=== PATIENT | female | born 1940 | race Caucasian/White ===

== ENCOUNTER → 2023-08-18 09:54 | Outpatient (REF) | payer MEDICARE, SELFPAY ==
[2023-08-18 11:16] LABS: INR 3.28; PT 33.9 Sec (11.4-14.6)
== END ==
LOC: REG 09:54
PROVIDERS: ATTENDING PHYSICIAN Family Medicine
DX: I48.0 Paroxysmal atrial fibrillation (principal); D59.5 Paroxysmal nocturnal hemoglobinuria [Marchiafava-Micheli]
CPT/HCPCS: 36415; 85610

== ENCOUNTER → 2023-09-01 11:18 | Outpatient (REF) | payer MEDICARE, SELFPAY ==
[2023-09-01 13:08] LABS: INR 4.58; PT 44.2 Sec (11.4-14.6)
== END ==
LOC: REG 11:18
PROVIDERS: ATTENDING PHYSICIAN Family Medicine
DX: I48.0 Paroxysmal atrial fibrillation (principal); D59.5 Paroxysmal nocturnal hemoglobinuria [Marchiafava-Micheli]
CPT/HCPCS: 36415; 85610

== ENCOUNTER → 2023-09-06 09:06 | Outpatient (REF) | payer MEDICARE, SELFPAY ==
[2023-09-06 10:24] LABS: INR 2.41; PT 26.1 Sec (11.4-14.6)
== END ==
LOC: REG 09:06
PROVIDERS: ATTENDING PHYSICIAN Family Medicine; REFERRING PHYSICIAN Internal Medicine Cardiovascular Disease
DX: D59.5 Paroxysmal nocturnal hemoglobinuria [Marchiafava-Micheli] (principal); I48.0 Paroxysmal atrial fibrillation
CPT/HCPCS: 36415; 85610

== ENCOUNTER → 2023-09-13 11:52 | Outpatient (REF) | payer MEDICARE, SELFPAY ==
[2023-09-13 13:08] LABS: INR 2.82; PT 29.6 Sec (11.4-14.6)
[2023-09-13 13:38] LABS: Blood Urea Nitrogen 26 mg/dl (7-17); Calcium 9.3 mg/dl (8.4-10.2); Carbon Dioxide 27 mmol/L (22-30); Chloride 102 mmol/L (98-107); Glucose 97 mg/dl (70-99); Potassium 4.4 mmol/L (3.5-5.1); Sodium 138 mmol/L (135-145); eGFR > 60.00
== END ==
LOC: REG 11:52
PROVIDERS: ATTENDING PHYSICIAN Family Medicine; FAMILY PHYSICIAN Physician Assistant
DX: I50.31 Acute diastolic (congestive) heart failure (principal); I48.92 Unspecified atrial flutter; I48.0 Paroxysmal atrial fibrillation; I49.3 Ventricular premature depolarization; D59.5 Paroxysmal nocturnal hemoglobinuria [Marchiafava-Micheli]
CPT/HCPCS: 36415; 80048; 85610

== ENCOUNTER → 2023-09-30 10:17 | Outpatient (REF) | payer MEDICARE, SELFPAY ==
[2023-09-30 11:42] LABS: INR 4.41; PT 42.8 Sec (11.4-14.6)
== END ==
LOC: REG 10:17
PROVIDERS: ATTENDING PHYSICIAN Family Medicine
DX: I48.0 Paroxysmal atrial fibrillation (principal); D59.5 Paroxysmal nocturnal hemoglobinuria [Marchiafava-Micheli]
CPT/HCPCS: 36415; 85610

== ENCOUNTER → 2023-10-04 09:59 | Outpatient (REF) | payer MEDICARE, SELFPAY ==
[2023-10-04 12:46] LABS: INR 2.33; PT 25.4 Sec (11.4-14.6)
== END ==
LOC: REG 09:59
PROVIDERS: ATTENDING PHYSICIAN Family Medicine
DX: I48.0 Paroxysmal atrial fibrillation (principal); D59.5 Paroxysmal nocturnal hemoglobinuria [Marchiafava-Micheli]
CPT/HCPCS: 36415; 85610

== ENCOUNTER → 2023-10-12 10:17 | Outpatient (REF) | payer MEDICARE, SELFPAY ==
[2023-10-12 12:38] LABS: INR 4.05; PT 39.4 Sec (11.4-14.6)
== END ==
LOC: REG 10:17
PROVIDERS: ATTENDING PHYSICIAN Family Medicine
DX: I48.0 Paroxysmal atrial fibrillation (principal); D59.5 Paroxysmal nocturnal hemoglobinuria [Marchiafava-Micheli]
CPT/HCPCS: 36415; 85610

== ENCOUNTER → 2023-10-19 08:51 | Outpatient (REF) | payer MEDICARE, SELFPAY ==
[2023-10-19 12:57] LABS: INR 1.95
== END ==
LOC: REG 08:51
PROVIDERS: ATTENDING PHYSICIAN Family Medicine
DX: I48.0 Paroxysmal atrial fibrillation (principal); D59.5 Paroxysmal nocturnal hemoglobinuria [Marchiafava-Micheli]
CPT/HCPCS: 36415; 85610

== ENCOUNTER → 2023-10-21 09:46 | Outpatient (REF) | payer MEDICARE, SELFPAY ==
[2023-10-21 12:00] LABS: INR 1.89; PT 21.9 Sec (11.4-14.6)
== END ==
LOC: REG 09:46
PROVIDERS: ATTENDING PHYSICIAN Family Medicine
DX: I48.0 Paroxysmal atrial fibrillation (principal); D59.5 Paroxysmal nocturnal hemoglobinuria [Marchiafava-Micheli]
CPT/HCPCS: 36415; 85610

== ENCOUNTER → 2023-11-05 09:42 | Outpatient (REF) | payer MEDICARE, SELFPAY ==
[2023-11-05 13:19] LABS: INR 6.63; PT 58.3 Sec (11.4-14.6)
== END ==
LOC: REG 09:42
PROVIDERS: ATTENDING PHYSICIAN Family Medicine
DX: D59.5 Paroxysmal nocturnal hemoglobinuria [Marchiafava-Micheli] (principal); I48.0 Paroxysmal atrial fibrillation; Z79.01 Long term (current) use of anticoagulants
CPT/HCPCS: 36415; 85610

== ENCOUNTER → 2023-11-10 09:45 | Outpatient (REF) | payer MEDICARE, SELFPAY ==
[2023-11-10 12:53] LABS: INR 1.42; PT 17.4 Sec (11.4-14.6)
== END ==
LOC: REG 09:45
PROVIDERS: ATTENDING PHYSICIAN Family Medicine
DX: D59.5 Paroxysmal nocturnal hemoglobinuria [Marchiafava-Micheli] (principal); I48.0 Paroxysmal atrial fibrillation; Z79.01 Long term (current) use of anticoagulants
CPT/HCPCS: 36415; 85610

== ENCOUNTER → 2023-11-17 11:54 | Outpatient (REF) | payer MEDICARE, SELFPAY ==
[2023-11-17 13:56] LABS: INR 1.94; PT 22.3 Sec (11.4-14.6)
== END ==
LOC: REG 11:54
PROVIDERS: ATTENDING PHYSICIAN Family Medicine
DX: I48.0 Paroxysmal atrial fibrillation (principal); D59.5 Paroxysmal nocturnal hemoglobinuria [Marchiafava-Micheli]
CPT/HCPCS: 36415; 85610

== ENCOUNTER → 2023-11-25 11:37 | Outpatient (REF) | payer MEDICARE, SELFPAY ==
[2023-11-25 12:42] LABS: INR 2.34; PT 25.9 Sec (11.4-14.6)
== END ==
LOC: REG 11:37
PROVIDERS: ATTENDING PHYSICIAN Family Medicine
DX: D59.5 Paroxysmal nocturnal hemoglobinuria [Marchiafava-Micheli] (principal); I48.0 Paroxysmal atrial fibrillation; Z79.01 Long term (current) use of anticoagulants
CPT/HCPCS: 36415; 85610

== ENCOUNTER → 2023-12-06 10:11 | Outpatient (REF) | payer MEDICARE, SELFPAY ==
[2023-12-06 12:24] LABS: INR 3.36
== END ==
LOC: REG 10:11
PROVIDERS: ATTENDING PHYSICIAN Family Medicine
DX: D59.5 Paroxysmal nocturnal hemoglobinuria [Marchiafava-Micheli] (principal); I48.0 Paroxysmal atrial fibrillation; Z79.01 Long term (current) use of anticoagulants
CPT/HCPCS: 36415; 85610

== ENCOUNTER → 2023-12-20 12:21 | Outpatient (REF) | payer MEDICARE, SELFPAY ==
[2023-12-20 13:09] LABS: PT 24.3 Sec (11.4-14.6)
== END ==
LOC: REG 12:21
PROVIDERS: ATTENDING PHYSICIAN Family Medicine
DX: I48.0 Paroxysmal atrial fibrillation (principal); D59.5 Paroxysmal nocturnal hemoglobinuria [Marchiafava-Micheli]
CPT/HCPCS: 36415; 85610

== ENCOUNTER → 2024-01-06 11:46 | Outpatient (REF) | payer MEDICARE, SELFPAY ==
[2024-01-06 17:29] LABS: NT-proBNP 494 pg/ml
[2024-01-06 17:31] LABS: Blood Urea Nitrogen 26 mg/dl (7-17); Calcium 9.6 mg/dl (8.4-10.2); Carbon Dioxide 27 mmol/L (22-30); Chloride 104 mmol/L (98-107); Glucose 101 mg/dl (70-99); Sodium 140 mmol/L (135-145); eGFR > 60.00
[2024-01-06 17:36] LABS: INR 1.82; PT 21.2 Sec (11.4-14.6)
== END ==
LOC: REG 11:46
PROVIDERS: ATTENDING PHYSICIAN Family Medicine; REFERRING PHYSICIAN Internal Medicine Cardiovascular Disease
DX: I48.0 Paroxysmal atrial fibrillation (principal); D59.5 Paroxysmal nocturnal hemoglobinuria [Marchiafava-Micheli]; I50.31 Acute diastolic (congestive) heart failure
CPT/HCPCS: 36415; 80048; 83880; 85610

== ENCOUNTER → 2024-02-14 09:20 | Outpatient (REF) | payer MEDICARE, SELFPAY ==
[2024-02-14 12:20] LABS: INR 1.98; PT 22.3 Sec (11.4-14.6)
== END ==
LOC: REG 09:20
PROVIDERS: ATTENDING PHYSICIAN Family Medicine
DX: I48.0 Paroxysmal atrial fibrillation (principal); D59.5 Paroxysmal nocturnal hemoglobinuria [Marchiafava-Micheli]
CPT/HCPCS: 36415; 85610

== ENCOUNTER → 2024-03-06 10:42 | Outpatient (REF) | payer MEDICARE, SELFPAY ==
[2024-03-06 12:22] LABS: INR 2.49; PT 26.8 Sec (11.4-14.6)
== END ==
LOC: REG 10:42
PROVIDERS: ATTENDING PHYSICIAN Family Medicine
DX: I48.0 Paroxysmal atrial fibrillation (principal)
CPT/HCPCS: 36415; 85610

== ENCOUNTER → 2024-04-17 13:43 | Outpatient (REF) | payer MEDICARE, SELFPAY ==
[2024-04-17 15:28] LABS: INR 1.63; PT 19.2 Sec (11.4-14.6)
[2024-04-17 16:02] LABS: ALT (SGPT) 21 U/L (0-35); AST (SGOT) 23 U/L (14-36); Albumin 4.2 g/dl (3.5-5.0); Alkaline Phosphatase 87 U/L (38-126); Blood Urea Nitrogen 21 mg/dl (7-17); Calcium 9.2 mg/dl (8.4-10.2); Carbon Dioxide 25 mmol/L (22-30); Chloride 104 mmol/L (98-107); Glucose 86 mg/dl (70-99); HDL Cholesterol 91 mg/dl; LDL Cholesterol, Calculated 126 mg/dl; Potassium 4.4 mmol/L (3.5-5.1); Sodium 143 mmol/L (135-145); Total Bilirubin 1.1 mg/dl (0.2-1.3); Total Cholesterol 241 mg/dl (50-199); Total Protein 6.5 g/dl (6.3-8.2); Triglyceride 123 mg/dl (10-149); Very Low Density Lipoprotein 24 mg/dl (0-30); eGFR > 60.00
== END ==
LOC: REG 13:43
PROVIDERS: ATTENDING PHYSICIAN Family Medicine
DX: E78.2 Mixed hyperlipidemia (principal); I48.0 Paroxysmal atrial fibrillation; I10 Essential (primary) hypertension
CPT/HCPCS: 36415; 80053; 80061; 85610

== ENCOUNTER → 2024-05-10 14:37 | Outpatient (REF) | payer MEDICARE, SELFPAY ==
[2024-05-10 15:58] LABS: INR 1.41; PT 17.4 Sec (11.4-14.6)
== END ==
LOC: REG 14:37
PROVIDERS: ATTENDING PHYSICIAN Family Medicine
DX: I48.0 Paroxysmal atrial fibrillation (principal)
CPT/HCPCS: 36415; 85610

== ENCOUNTER → 2024-06-05 12:26 | Outpatient (REF) | payer MEDICARE, SELFPAY ==
[2024-06-05 13:16] LABS: INR 1.66; PT 19.9 Sec (11.4-14.6)
== END ==
LOC: RCS 12:26
PROVIDERS: ATTENDING PHYSICIAN Internal Medicine Cardiovascular Disease; FAMILY PHYSICIAN Family Medicine
DX: I50.31 Acute diastolic (congestive) heart failure (principal)
CPT/HCPCS: 36415; 85610; 93306

== ENCOUNTER → 2024-06-23 10:01 | Outpatient (REF) | payer MEDICARE, SELFPAY ==
[2024-06-23 13:30] LABS: INR 1.85; PT 21.5 Sec (11.4-14.6)
== END ==
LOC: REG 10:01
PROVIDERS: ATTENDING PHYSICIAN Family Medicine
DX: I48.0 Paroxysmal atrial fibrillation (principal)
CPT/HCPCS: 36415; 85610

== ENCOUNTER → 2024-07-17 13:05 | Outpatient (REF) | payer MEDICARE, SELFPAY ==
[2024-07-17 14:10] LABS: INR 1.96; PT 22.8 Sec (11.4-14.6)
== END ==
LOC: REG 13:05
PROVIDERS: ATTENDING PHYSICIAN Family Medicine
DX: I48.0 Paroxysmal atrial fibrillation (principal)
CPT/HCPCS: 36415; 85610

== ENCOUNTER → 2024-07-27 10:22 | Outpatient (REF) | payer MEDICARE, SELFPAY ==
[2024-07-27 15:01] LABS: INR 3.33; PT 34.1 Sec (11.4-14.6)
== END ==
LOC: REG 10:22
PROVIDERS: ATTENDING PHYSICIAN Family Medicine
DX: I48.0 Paroxysmal atrial fibrillation (principal)
CPT/HCPCS: 36415; 85610

== ENCOUNTER → 2024-08-02 13:56 | Outpatient (REF) | payer MEDICARE, SELFPAY | LOC: RAD 13:56 | PROVIDERS: ATTENDING PHYSICIAN Family Medicine; OTHER PHYSICIAN Internal Medicine Medical Oncology; REFERRING PHYSICIAN Internal Medicine Cardiovascular Disease | DX: R10.13 Epigastric pain (principal) | CPT/HCPCS: 74176 ==

== ENCOUNTER → 2024-08-12 10:57 | Outpatient (REF) | payer MEDICARE, SELFPAY ==
[2024-08-12 12:04] LABS: INR 2.74; PT 28.9 Sec (11.4-14.6)
== END ==
LOC: REG 10:57
PROVIDERS: ATTENDING PHYSICIAN Family Medicine
DX: I48.0 Paroxysmal atrial fibrillation (principal)
CPT/HCPCS: 36415; 85610

== ENCOUNTER → 2024-08-31 12:03 | Outpatient (REF) | payer MEDICARE, SELFPAY ==
[2024-08-31 13:08] LABS: INR 2.15; PT 24.4 Sec (11.4-14.6)
== END ==
LOC: REG 12:03
PROVIDERS: ATTENDING PHYSICIAN Family Medicine; REFERRING PHYSICIAN Internal Medicine Cardiovascular Disease
DX: D68.69 Other thrombophilia (principal); I48.0 Paroxysmal atrial fibrillation
CPT/HCPCS: 36415; 85610

== ENCOUNTER → 2024-09-22 12:05 | Outpatient (REF) | payer MEDICARE, SELFPAY ==
[2024-09-22 12:55] LABS: INR 1.93; PT 22.2 Sec (11.4-14.6)
[2024-09-22 13:01] LABS: ALT (SGPT) 16 U/L (0-35); AST (SGOT) 28 U/L (14-36); Albumin 4.9 g/dl (3.5-5.0); Alkaline Phosphatase 94 U/L (38-126); Blood Urea Nitrogen 34 mg/dl (7-17); Calcium 9.8 mg/dl (8.4-10.2); Carbon Dioxide 31 mmol/L (22-30); Chloride 99 mmol/L (98-107); Glucose 98 mg/dl (70-99); HDL Cholesterol 54 mg/dl; LDL Cholesterol, Calculated 173 mg/dl; Potassium 4.8 mmol/L (3.5-5.1); Sodium 139 mmol/L (135-145); Total Bilirubin 1.4 mg/dl (0.2-1.3); Total Cholesterol 269 mg/dl (50-199); Total Protein 7.6 g/dl (6.3-8.2); Triglyceride 211 mg/dl (10-149); Very Low Density Lipoprotein 42 mg/dl (0-30); eGFR 54.87
== END ==
LOC: REG 12:05
PROVIDERS: ATTENDING PHYSICIAN Family Medicine
DX: I50.32 Chronic diastolic (congestive) heart failure (principal); E78.2 Mixed hyperlipidemia; D68.69 Other thrombophilia
CPT/HCPCS: 36415; 80053; 80061; 85610

== ENCOUNTER → 2024-10-11 11:41 | Outpatient (REF) | payer MEDICARE, SELFPAY ==
[2024-10-11 12:42] LABS: % Basophils 0.4 % (0-2); % Eosinophils 2.7 % (0-6); % Immature Granulocytes 0.6 % (0-0.5); % Lymphocytes 18.6 % (20.5-51.1); % Monocytes 8.2 % (1.7-9.3); % Neutrophils 69.5 % (42.2-75.2); Absolute Eosinophils 0.3 10^3/uL (0-0.7); Absolute Immature Granulocytes 0.1 10^3/uL (0-0.05); Absolute Lymphocytes 1.7 10^3/uL (1.2-3.4); Absolute Monocytes 0.8 10^3/uL (0.1-0.6); Absolute Neutrophils 6.5 10^3/uL (1.4-6.5); Hemoglobin 12.3 g/dL (12.0-16.0); Mean Corp Hgb Conc. 32.4 g/dL (33.0-37.0); Mean Corpuscular Volume 95.7 fL (81.0-99.0); Mean Platelet Volume 10.6 fL (7.4-10.4); Nucleated Red Blood Cells % 0 %; Platelet Count 254 10^3/uL (130-400); Red Blood Cell Count 3.97 10^6/uL (4.20-5.40); Red Cell Dist. Width 13.7 % (11.5-14.5); White Blood Cell Count 9.3 10^3/uL (4.8-10.8)
[2024-10-11 13:35] LABS: ALT (SGPT) 18 U/L (0-35); AST (SGOT) 27 U/L (14-36); Albumin 4.5 g/dl (3.5-5.0); Alkaline Phosphatase 99 U/L (38-126); Blood Urea Nitrogen 21 mg/dl (7-17); Calcium 9.8 mg/dl (8.4-10.2); Carbon Dioxide 30 mmol/L (22-30); Chloride 103 mmol/L (98-107); Glucose 100 mg/dl (70-99); INR 1.27; PT 16.4 Sec (11.4-14.6); Potassium 4.6 mmol/L (3.5-5.1); Sodium 143 mmol/L (135-145); Total Protein 7.5 g/dl (6.3-8.2); eGFR > 60.00
[2024-10-11 14:58] LABS: Erythrocyte Sed Rate 26 mm/hour (0-20)
[2024-10-13 13:34] LABS: Rheumatoid Agglutinin Less Than 10 IU (<10 IU)
[2024-10-13 19:23] LABS: CCP Antibody IgG/IgA 3 Units (0-19)
[2024-10-14 02:12] LABS: ANA, IgG Reflex to HEp-2 None Detected (None Detected)
== END ==
LOC: REG 11:41
PROVIDERS: ATTENDING PHYSICIAN Student in an Organized Health Care Education/Training Program; FAMILY PHYSICIAN Family Medicine; OTHER PHYSICIAN Internal Medicine Medical Oncology; REFERRING PHYSICIAN Internal Medicine Cardiovascular Disease
DX: I48.0 Paroxysmal atrial fibrillation (principal); L98.9 Disorder of the skin and subcutaneous tissue, unspecified; M15.4 Erosive (osteo)arthritis; M15.9 Polyosteoarthritis, unspecified; M17.0 Bilateral primary osteoarthritis of knee; M17.11 Unilateral primary osteoarthritis, right knee; M17.12 Unilateral primary osteoarthritis, left knee; M19.041 Primary osteoarthritis, right hand; M25.462 Effusion, left knee; M25.511 Pain in right shoulder; M25.512 Pain in left shoulder; M25.561 Pain in right knee; M35.3 Polymyalgia rheumatica; M54.12 Radiculopathy, cervical region; M62.81 Muscle weakness (generalized); M65.88 Other synovitis and tenosynovitis, other site; M79.641 Pain in right hand; M79.672 Pain in left foot; M79.7 Fibromyalgia
CPT/HCPCS: 36415; 80053; 85025; 85610; 85652; 86038; 86140; 86200; 86430

== ENCOUNTER → 2024-10-23 10:45 | Outpatient (REF) | payer MEDICARE, SELFPAY ==
[2024-10-23 12:50] LABS: INR 2.01; PT 22.9 Sec (11.4-14.6)
== END ==
LOC: REG 10:45
PROVIDERS: ATTENDING PHYSICIAN Family Medicine
DX: I48.0 Paroxysmal atrial fibrillation (principal)
CPT/HCPCS: 36415; 85610

== ENCOUNTER → 2024-11-09 09:53 | Outpatient (REF) | payer MEDICARE, SELFPAY ==
[2024-11-09 11:47] LABS: INR 2.63; PT 28.5 Sec (11.4-14.6)
== END ==
LOC: REG 09:53
PROVIDERS: ATTENDING PHYSICIAN Family Medicine
DX: I48.0 Paroxysmal atrial fibrillation (principal)
CPT/HCPCS: 36415; 85610

== ENCOUNTER → 2024-11-27 11:32 | Outpatient (REF) | payer MEDICARE, SELFPAY ==
[2024-11-27 15:12] LABS: INR 2.75
== END ==
LOC: REG 11:32
PROVIDERS: ATTENDING PHYSICIAN Family Medicine
DX: I48.0 Paroxysmal atrial fibrillation (principal)
CPT/HCPCS: 36415; 85610

== ENCOUNTER → 2024-12-29 11:08 | Outpatient (REF) | payer MEDICARE, SELFPAY ==
[2024-12-29 12:21] LABS: % Eosinophils 2.2 % (0-6); % Immature Granulocytes 0.4 % (0-0.5); % Lymphocytes 26.8 % (20.5-51.1); % Monocytes 10.6 % (1.7-9.3); Absolute Basophils 0.1 10^3/uL (0-0.2); Absolute Eosinophils 0.2 10^3/uL (0-0.7); Absolute Lymphocytes 2.1 10^3/uL (1.2-3.4); Absolute Monocytes 0.8 10^3/uL (0.1-0.6); Absolute Neutrophils 4.6 10^3/uL (1.4-6.5); Hemoglobin 11.4 g/dL (12.0-16.0); Mean Corp Hgb Conc. 32.6 g/dL (33.0-37.0); Mean Corpuscular Volume 95.1 fL (81.0-99.0); Mean Platelet Volume 10.4 fL (7.4-10.4); Nucleated Red Blood Cells % 0 %; Platelet Count 268 10^3/uL (130-400); Red Blood Cell Count 3.68 10^6/uL (4.20-5.40); Red Cell Dist. Width 13.2 % (11.5-14.5); White Blood Cell Count 7.7 10^3/uL (4.8-10.8)
[2024-12-29 12:36] LABS: INR 1.76; PT 20.7 Sec (11.4-14.6)
[2024-12-29 12:55] LABS: Erythrocyte Sed Rate 40 mm/hour (0-20)
[2024-12-29 14:14] LABS: ALT (SGPT) 18 U/L (0-35); AST (SGOT) 24 U/L (14-36); Albumin 4.6 g/dl (3.5-5.0); Alkaline Phosphatase 76 U/L (38-126); Blood Urea Nitrogen 32 mg/dl (7-17); Calcium 9.2 mg/dl (8.4-10.2); Carbon Dioxide 27 mmol/L (22-30); Chloride 107 mmol/L (98-107); Glucose 76 mg/dl (70-99); Potassium 4.2 mmol/L (3.5-5.1); Sodium 143 mmol/L (135-145); Total Bilirubin 0.7 mg/dl (0.2-1.3); Total Protein 7.2 g/dl (6.3-8.2); eGFR 54.87
== END ==
LOC: REG 11:08
PROVIDERS: ATTENDING PHYSICIAN Student in an Organized Health Care Education/Training Program; FAMILY PHYSICIAN Family Medicine; OTHER PHYSICIAN Internal Medicine Medical Oncology; REFERRING PHYSICIAN Internal Medicine Cardiovascular Disease
DX: I48.0 Paroxysmal atrial fibrillation (principal); L98.9 Disorder of the skin and subcutaneous tissue, unspecified; M15.4 Erosive (osteo)arthritis; M15.9 Polyosteoarthritis, unspecified; M17.0 Bilateral primary osteoarthritis of knee; M17.11 Unilateral primary osteoarthritis, right knee; M17.12 Unilateral primary osteoarthritis, left knee; M19.041 Primary osteoarthritis, right hand; M25.462 Effusion, left knee; M25.511 Pain in right shoulder; M25.512 Pain in left shoulder; M25.561 Pain in right knee; M35.3 Polymyalgia rheumatica; M54.16 Radiculopathy, lumbar region; M62.81 Muscle weakness (generalized); M65.88 Other synovitis and tenosynovitis, other site; M79.641 Pain in right hand; M79.672 Pain in left foot; M79.7 Fibromyalgia; M80.00XA Age-related osteoporosis with current pathological fracture, unspecified site, initial encounter for fracture; M81.0 Age-related osteoporosis without current pathological fracture; M84.48XD Pathological fracture, other site, subsequent encounter for fracture with routine healing; M84.48XS Pathological fracture, other site, sequela; M85.89 Other specified disorders of bone density and structure, multiple sites; M89.49 Other hypertrophic osteoarthropathy, multiple sites; R49.0 Dysphonia; R60.0 Localized edema; R60.9 Edema, unspecified; R63.4 Abnormal weight loss; Z13.820 Encounter for screening for osteoporosis; Z79.01 Long term (current) use of anticoagulants
CPT/HCPCS: 36415; 80053; 85025; 85610; 85652; 86140

== ENCOUNTER → 2025-01-20 09:20 | Outpatient (REF) | payer MEDICARE, SELFPAY ==
[2025-01-20 10:58] LABS: INR 1.23; PT 16.1 Sec (11.4-14.6)
== END ==
LOC: REG 09:20
PROVIDERS: ATTENDING PHYSICIAN Family Medicine
DX: I48.0 Paroxysmal atrial fibrillation (principal)
CPT/HCPCS: 36415; 85610

== ENCOUNTER → 2025-01-29 12:55 | Outpatient (REF) | payer MEDICARE, SELFPAY ==
[2025-01-29 13:40] LABS: INR 2.51; PT 27.1 Sec (11.4-14.6)
== END ==
LOC: REG 12:55
PROVIDERS: ATTENDING PHYSICIAN Family Medicine
DX: I48.0 Paroxysmal atrial fibrillation (principal)
CPT/HCPCS: 36415; 85610

== ENCOUNTER 2025-02-02 19:58 | Inpatient (IN) | payer MEDICARE, SELFPAY ==
[2025-02-02 13:59] VITALS: BP 163/68
--- NOTE | 2025-02-02 16:11 | ED.GENMED ---
History of Present Illness
General
Chief Complaint: Musculo-Skeletal Complaint
Source: patient
Exam Limitations: none
Time Seen by Provider: 02/02/25 15:59
Nursing documentation reviewed up to this point in time: agreed with
History of Present Illness
History of Present Illness:
The patient is an 84-year-old female who presents to the emergency department with left hip pain after outpatient MRI showed a femoral neck fracture. Patient apparently sustained a mechanical fall on 01/23/2025 where she landed on her left side. She
has been experiencing left hip pain since fall which has been progressively worsening and leading to difficulties with ambulation. Apparently�patient had immediately followed up with orthopedics where she had negative x-ray imaging of her left hip.
However�given persistent pain she had an MRI performed today which did reveal a femoral neck fracture of her left hip.
She denies any additional falls since 01/23/2025. She denies any head strike or loss of consciousness. She denies any neck or back pain. No numbness/tingling or weakness in lower extremities. No other concerns today
Patient is anticoagulated on Coumadin.
Past History
Past History
ED Past Medical History: HTN and Other (PNH, fibromyalgia)
Social History
Tobacco: Non-smoker
Living: alone
Review of Systems
Review of Systems
Allergies reviewed?: Yes
All Other Systems: ROS reviewed and negative except as documented in HPI and ROS
Phy Exam
Physical Exam
Physical Exam:
Vitals: Hypertensive, otherwise vital signs stable. Afebrile
General: Patient is well appearing, no acute distress. Nontoxic appearing
Skin: Warm and dry, no rashes or lesions
Head: Normocephalic, atraumatic
Eyes: Sclera nonicteric. EOMs intact. No nystagmus.
Throat: Protecting airway
Neck: Normal ROM, no cervical spine tenderness, no meningismus
Cardiac: Regular rate and rhythm, no murmurs.
Pulm: Normal respiratory effort, no wheezes, rales, rhonchi heard on exam
Abdomen: Abdomen soft and nontender.
Extremities: No obvious deformity of left lower extremity. Tenderness to palpation in left inguinal region with significant pain with any internal/external rotation of left hip. No pain in left knee or left extremity motion. 2 full DP pulse with
normal capillary refill and sensation of LLE. RLE atraumatic and nontender with full range of motion.
Neuro: AAOx3. Grossly intact.
Psychiatric: Normal affect.
Course
Orders/Labs/Results
Orders:
Orders
02/02/25 Breakfast
Regular
At Your Request: Full Participation
02/02/25 16:18
Acetaminophen [Tylenol] 650 mg PO NOW STA
02/02/25 16:46
Electrocardiogram (*1) Urgent
Reason for Study: PreOp
EKG- Treatment ONCE
02/02/25 16:59
Basic Metabolic Panel Urgent
Complete Blood Count/With Diff Urgent
Prothrombin Time Urgent
02/02/25 18:52
Admit/Transfer Patient As Directed
Co-Sign Provider:
Level of Care: Inpatient admission
Assign to:: Telemetry
Physician / Group: kiera cisneros
Diagnosis: femioral neck fracture
Reason for Telemetry: Arrhythmia
Date to Stop Telemetry: 02/05/25
Time to Stop Telemetry: 11:00
Reason for Hospitalization: femoral neck fracture
Expected length of stay greater than two midnights?: Yes
ELOS- Estimated Length of Stay in days: 3
I certify the patient meets the requirements for IP care: Yes
PRN Pain Medication Management As Directed
May give lesser potent ordered pain med per pt: Yes
preference::
Protocol:: Medication orders for pain may be administered in a
manner that supports deferring to patient preference
when the pt is:
- Requesting an ordered lesser potent pain medication.
Least to most potent pain medications are defined
as: acetaminophen < NSAID < tramadol < opioids
(morphine, oxycodone, hydromorphone).
- Requesting a lesser dose of the same medication IF
ORDERED.
- Requesting a less intrusive route of administration
if both routes are prescribed by the provider (PO <
IV).
02/02/25 18:54
Code Status As Directed
Resuscitation Status: Full Code
02/02/25 20:28
Acetaminophen [Tylenol] 650 mg PO Q4HWA
Docusate Sodium [Colace] 100 mg PO BID
HYDROmorphone [Dilaudid] 0.5 mg IV Q4HPRN PRN
Magnesium Hydroxide [Milk of Magnesia] 30 ml PO DAILYPRN PRN
Metoprolol [Lopressor] 75 mg PO BID
Prednisone [Deltasone] 2.5 mg PO DAILYPRN PRN inflammation
Sennosides [Senokot] 17.2 mg PO BID
Tamsulosin [Flomax] 0.4 mg PO DAILYPRN PRN
Tramadol HCl [Ultram] 50 mg PO TIDPRN PRN moderate pains
Zolpidem Tartrate [Ambien] 5 mg PO HSPRN PRN sleep
02/02/25 20:28
ORTHOPEDIC CONSULT Routine
Consulting Provider: Parth Brown
Was physician already notified: Yes
Activity As Directed
Activity Level: As Tolerated
Bladder Scan As Directed
Follow Bladder Retention/Intermittent Cath Algorithm?: Yes
PRN if no void in __ hours: 6
Comment: if not voiding 6 hrs upon arrival to floor, bladder scan & follow algorithm
Intake/ Output As Directed
Frequency: Per unit guidelines
Straight Cath As Directed
Frequency: Per Retention Algorithm
Additional Instructions: straight cath as needed per acute urinary retention algorithm for 24 hrs
Additional Instructions: for bladder scan greater than 400 mL
Venous Foot Pumps As Directed
Location: Bilateral feet
Vital Signs As Directed
Frequency: Per unit guidelines
DX Deep Vein Thrombosis Video Routine
02/03/25 Breakfast
NPO
Allow oral meds: Yes
Allow clear liquids: No
NPO for procedure after (time): 01/31/2025 0000
PT/INR [Prothrombin Time] IN AM
02/03/25 08:00
Ezetimibe [Zetia] 10 mg PO DAILY
Furosemide [Lasix] 40 mg PO DAILY
Hydroxychloroquine [Plaquenil] 200 mg PO DAILY
02/04/25 06:00
PT/INR [Prothrombin Time] IN AM
02/05/25 06:00
PT/INR [Prothrombin Time] IN AM
02/05/25 11:00
DC Protocol for Telemetry ONCE
02/06/25 06:00
PT/INR [Prothrombin Time] IN AM
Abnormal Lab Results
02/02/25
16:59
WBC 13.3 H 10^3/uL
(4.8-10.8)
RBC 3.85 L 10^6/uL
(4.20-5.40)
Hgb 11.9 L g/dL
(12.0-16.0)
Hct 36.0 L %
(37.0-47.0)
MPV 10.5 H fL
(7.4-10.4)
Abs Immat Gran (auto) 0.1 H 10^3/uL
(0-0.05)
Absolute Neuts (auto) 10.0 H 10^3/uL
(1.4-6.5)
Absolute Monos (auto) 0.9 H 10^3/uL
(0.1-0.6)
Immature Gran % 0.7 H %
(0-0.5)
Lymphocytes % 16.1 L %
(20.5-51.1)
PT 37.0 H Sec
(11.4-14.6)
Chloride 108 H mmol/L
(98-107)
BUN 24 H mg/dl
(7-17)
Glucose 102 H mg/dl
(70-99)
02/02/25 16:59
02/02/25 16:59
Vital Signs
Initial and Last Documented VS:
Initial Vital Signs
Temp Pulse Resp BP Pulse Ox
98.1 F 103 20 163/68 96
02/02/25 13:59 02/02/25 13:59 02/02/25 13:59 02/02/25 13:59 02/02/25 13:59
Last Documented Vital Signs
Temp Pulse Resp BP Pulse Ox
97.5 F 54 18 136/68 98
02/02/25 23:29 02/02/25 23:29 02/02/25 23:29 02/02/25 23:29 02/02/25 23:29
MDM/Problems Addressed
Differential Diagnosis Includes:
Not limited to: Hip fracture, hip dislocation, ambulatory dysfunction, hip contusion, etc.
MDM/Problems Addressed:
84-year-old female presenting with 10 days of progressively worsening left hip pain and difficulty ambulating following mechanical fall. Initial x-rays negative however outpatient MRI performed today revealed left femoral neck fracture. Initial fall
was not associated with head strike.
Vitals and exam as above. Left lower extremity neurovascular intact without any obvious deformity. She has tenderness in left inguinal region with significant pain with rotation of left hip.
MRI reviewed which does show an acute, non-displace fracture of the subcapital femoral neck
Discussed with orthopedics, Dr. Brown, who recommends [id number] until surgical correction either outpatient or tomorrow if admitted to the hospital. Patient is on coumadin - Dr. Brown aware.
Discussed options with patient at length regarding admission to the hospital for surgical correction tomorrow for outpatient orthopedic follow up. However � patient lives alone and given NWB recommendation by orthopedics, do not feel patient is safe
for discharge home as she will be unable to complete ADLs.
Update: Patient considering all options. Ultimately � she will require admission to the hospital one way or another either for operation tomorrow or PT/CM consult for acute rehab placement pending surgical fixation outpatient. Will send labs and
admit to hospitalist.
Update: labs reviewed Leukocytosis of 13.3. INR 3.78. Chemistry in remarkable. Patient had agreed to surgery tomorrow. Orthopedics aware. Patient accepted to hospitalist service in stable condition.
Chronic conditions affecting care:
N/A
Acute Exacerbation and/or Progression of Chronic Illness:
N/A
*Pulse Oximetry
SaO2: 96
Oxygen Mode of Delivery: Room air
Patient hypoxic: no
*EKG
Interpreted by ED Provider?: Yes
EKG Intrepretation Date: 02/02/25
Interpretation: abnormal
Comparison EKG: changes noted
Heart Rate: 83
Rate: normal
Rhythm: sinus
[place]: normal axis
Interval: normal QT interval
QRS Pattern: normal QRS
Ischemia: non-specific ST changes
*Supervisor Inspection And Testing Interpretation
Rate: Supervisor Inspection And Testing- N/A
*Critical Care Note
Total Time (30-74mins, 75-104mins- exclusive of procedures): Not Applicable
Data Reviewed
Review of Other/Old Records Reveals: Radiology Studies (MRI of left hip performed 02/02/2025 which reveals left femoral neck fracture)
Patient Management
Discussion with other providers: Hospitalist and Adventure Therapist (Case discussed with orthopedics)
Escalation/DeEscalation of care consider admission/obs:
Admit to hospitalist -plan for pinning in OR with orthopedics tomorrow
ED Attending Note
-
Portions of this chart may have been created with voice recognition software.� Occasional wrong word or��sound alike� substitutions may have occurred due to the inherent limitations of voice recognition software.
Discharge Plan
Departure
Patient Disposition: Admit
Date of Disposition: 02/02/25
Time of Disposition: 18:04
Presentation/result/management discussed w/ accepting MD/DO: Hospitalist
Discharge Problem:
Fracture of femoral neck, left
Interventions
Interventions:
*Risk Screen - Suicide Last Done: 02/02/25 13:59
*General Assessment Last Done: 02/02/25 13:59
*Neglect/Abuse Screening Last Done: 02/02/25 13:59
*ED- Fall Risk Assessment Last Done: 02/02/25 16:01
*ED COVID-19 Vaccine History Last Done: 02/02/25 16:20
*Nursing Disposition Last Done: 02/02/25 20:35
ED-Musculoskeletal Assessment Last Done: 02/02/25 16:20
Discharge Date and Time
Discharge Date/Time: 02/02/25 20:20
[2025-02-02 16:20] VITALS: BMI 25.4
[2025-02-02] MEDS: TYLENOL 650 MG PO (16:25)
[2025-02-02 17:22] LABS: Hematocrit 36.0 % (37.0-47.0); Hemoglobin 11.9 g/dL (12.0-16.0); Mean Corp Hgb Conc. 33.1 g/dL (33.0-37.0); Mean Corpuscular Volume 93.5 fL (81.0-99.0); Nucleated Red Blood Cells % 0 %; Platelet Count 297 10^3/uL (130-400); Red Cell Dist. Width 13.2 % (11.5-14.5)
[2025-02-02 17:27] LABS: INR 3.78; PT 37.0 Sec (11.4-14.6)
[2025-02-02 17:47] LABS: Blood Urea Nitrogen 24 mg/dl (7-17); Calcium 9.2 mg/dl (8.4-10.2); Carbon Dioxide 23 mmol/L (22-30); Chloride 108 mmol/L (98-107); Estimated Creatinine Clearance 40 ml/min; Glucose 102 mg/dl (70-99); Potassium 3.9 mmol/L (3.5-5.1); Sodium 139 mmol/L (135-145); eGFR > 60.00
--- NOTE | 2025-02-02 18:36 | HPS.HSE ---
Family Physician
-
Family Physician: David Garland
Chief Complaint
-
left hip pain s/p fall at home
History of Present Illness
84-year-old female with past medical history for hyperlipidemia, paroxysmal nocturnal hemoglobinuria, Budd-Chiari syndrome, fibromyalgia, cardiomyopathy, A-fib, CHF, polymyalgia rheumatica presented to us with left hip pain status post fall 10 days
ago at home. Her legs gave out and she landed on her hip. Patient was following up with orthopedics as outpatient .she had an outpatient MRI showing a femoral neck fracture. Patient was barely walk with walker at home. Patient denied any
headache, dizzy or syncope. Patient denied any fever, chills, chest pain, short of breath. Patient denied any abdominal pain, nausea, vomiting or diarrhea. Patient denied dysuria dysuria.
Admitted for further management
Medical History
Past Medical History
Past Medical History: Reports Other
Additional Past Medical History:
Hyperlipidemia
Budd-Chiari syndrome
Fibromyalgia
Cardiomyopathy
Paroxysmal A-fib
CHF
Uterovaginal prolapse
Polymyalgia rheumatica
Past Surgical History: Reports Other
Additional Past Surgical History:
Bilateral cataract extraction
Social History
Tobacco: Non-smoker
Alcohol: None
Drug: None
Family History
Family History: Not pertinent
Allergies / Home Medications
Allergies reflects when Allergies were last updated in [facility].
Home Medications with original date entered in [facility]
Allergy/Medication List:
Allergies
Allergy/AdvReac Type Severity Reaction Status Date / Time
Iodinated Contrast Media Allergy Intermediate Hives Verified 02/02/25 14:04
Penicillins Allergy Unknown Hives Verified 02/02/25 14:04
Home Medications
prednisone 5 mg tablet 2.5 mg PO DAILYPRN PRN inflammation 05/23/21
eculizumab 300 mg/30 mL intravenous solution (Soliris) 300 mg IV Q2W 02/02/25
ezetimibe 10 mg tablet (Zetia) 10 mg PO DAILY 02/02/25
furosemide 40 mg tablet (Lasix) 40 mg PO DAILY 02/02/25
hydroxychloroquine 200 mg tablet (Plaquenil) 200 mg PO DAILY 02/02/25
metoprolol tartrate 25 mg tablet 75 mg PO BID 02/02/25
tramadol 50 mg tablet 50 mg PO TIDPRN PRN moderate pains 02/02/25
warfarin 2 mg tablet 2 mg PO SUWE@189902/02/25
warfarin 4 mg tablet 4 mg PO MOTUTHFRSA@189902/02/25
zolpidem 10 mg tablet 5 mg PO HSPRN PRN sleep 02/02/25
Review of Systems
-
Constitutional: Reports No Symptoms
EENT: Reports No Symptoms
Respiratory: Reports No Symptoms
Cardiac: Reports No Symptoms
Abdomen/GI: Reports No Symptoms
: Reports No Symptoms
Musculoskeletal: Reports Other (Left hip pain)
Skin: Reports No Symptoms
Neurological: Reports No Symptoms
Endocrine: Reports No Symptoms
Hematologic/Lymphatic: Reports No Symptoms
Psych: Reports No Symptoms
Physical Exam
Vital Signs
Vital Signs
Temp Pulse Resp BP Pulse Ox
98.1 F 103 20 163/68 96
02/02/25 13:59 02/02/25 13:59 02/02/25 13:59 02/02/25 13:59 02/02/25 16:11
Physical Exam
General: Well Developed, Well Nourished and No Apparent Distress
HEENT: NormoCephalic, Moist mucous membranes and Atraumatic
Respiratory: Clear
Cardiac: S1/S2 and Regular Rhythm; No Murmur or Rub
GI: Soft, Non Tender, Non Distended and Normal Bowel Sounds; No Organomegaly
Rectal: Deferred by Provider
Musculoskeletal: No Clubbing, No Cyanosis, No Edema and Other (Left lower extremity showed)
Skin: No Rash
Neuro: AO x 3 and Nonfocal/grossly intact
Psych: Calm
Laboratory Results
-
02/02/25 16:59
02/02/25 16:59
Laboratory Results
PT 37.0 Sec (11.4-14.6) H 02/02/25 16:59
INR 3.78 02/02/25 16:59
Data Reviewed
-
MRI: Report Reviewed by me
Lab Data: Labs Reviewed by me
Impression/Plan
-
# Left femoral neck fracture secondary to mechanical fall
- MRI with femoral neck fracture
- Ortho consulted
- For pinning tomorrow
- tramdol and Dilaudid p.o. for pain
- Will keep patient n.p.o. after midnight
# Leukocytosis likely reactive
- WBC 13.3, patient is afebrile
- Continue to monitor
# Anemia of chronic disease
- Hemoglobin stable at 11.9, patient with no active bleeding
- Continue to monitor hemoglobin
# Hyperlipidemia
- Zetia continued
# History of CHF
- Patient noted in acute exacerbation
- Lasix continued
#PNH
-patient is on soliris as outpatient
# Paroxysmal A-fib
-EKG with normal sinus rhythm
-Hold Coumadin
- Daily PT/INR
-metoprolol continued
#Fibromyalgia
#Chronic Pain Syndrome
# Polymyalgia rheumatica
-Plaquenil, prednisone, tramadol continued
DVT Prophylaxis: SCDs
Code Status: Full
[2025-02-02 20:39] VITALS: BP 152/70
--- NOTE | 2025-02-02 20:49 | W.PN.UPDATE ---
Update Note
Progress Note Update
This note serves as an addendum to the H&P by grinder setup operator EZRA Julia SWAN
HPI
84F HX CM, Prx AF, Chr HFpEF , LVEF 56, Hyperlipidemia, Budd-Chiari syndrome, PMR, Fibromyalgia seen at ER
- fall 10 days ago
- legs gave out and she landed on her hip.
- OP F/U with orthopedics
- outpatient MRI showing a femoral neck fracture.
- associated with acute gait disorder
ROS
denied any headache, dizzy or syncope.
denied any fever, chills, chest pain, short of breath.
Vital Signs
Temp Pulse Resp BP Pulse Ox
98.1 F 68 18 152/70 98
02/02/25 20:39 02/02/25 20:39 02/02/25 20:39 02/02/25 20:39 02/02/25 20:39
PE
Gen: NAD
HEENT: atraumatic
Neck: supple
Lungs: CTA
Cor: RRR
Abdomen: Soft, Non Tender, Non Distended
OIL WELL LOGGING ENGINEER: Grossly NFND
MS: shortened LLEx
Psych: Nl mood anf affect
Abnormal Lab Results
02/02/25
16:59
WBC 13.3 H
RBC 3.85 L
Hgb 11.9 L
Hct 36.0 L
MPV 10.5 H
Abs Immat Gran (auto) 0.1 H
Absolute Neuts (auto) 10.0 H
Absolute Monos (auto) 0.9 H
Immature Gran % 0.7 H
Lymphocytes % 16.1 L
PT
INR 37.0 H
3.7
Chloride 108 H
BUN 24 H
Glucose 102 H
02/02/25 MR Left Hip W/o
- Acute, nondisplaced fracture of the subcapital left femoral neck.
06/05/24 TTE
- LVEF 56
- moderate aortic valve insufficiency noted.
- PA pressure has improved from prior 43 mmHg to 27 mmHg
ASSESSMENT & PLAN
Acute Lt NoF Fx s/p mechanical fall 10 days ago
- associated acute ambulatory dysfunction
- Leukocytosis likely reactive : afebrile
- Ortho consulted
- NPO after MN For pinning tomorrow
- pain control for Fx set protocol
- Hold Coumadin
- Trend WCC
Paroxysmal AF - in NSR per EKG
- INR 3.78
- Hold Coumadin
- Daily PT/INR
- c/w FACING CUTTING MACHINE OPERATOR metoprolol tartrate
Hyperlipidemia
- on FACING CUTTING MACHINE OPERATOR Zetia
HX Chr HFpEF
- Not in acute HF acute exacerbation
- c/w FACING CUTTING MACHINE OPERATOR PO Lasix
Anemia of chronic disease
- Hemoglobin stable at 11.9, patient with no active bleeding
- Trend Hgb
HX PNH
- on Soliris as outpatient
Fibromyalgia
Chronic Pain Syndrome
Polymyalgia rheumatica
- on Plaquenil, prednisone, tramadol continued
DVT Prophylaxis: SCDs
Full code
IP TLM
[2025-02-02 20:53] VITALS: BMI 27.3
[2025-02-02] MEDS: LOPRESSOR 75 MG PO (21:41)
[2025-02-02] MEDS: TYLENOL PO (21:42)
[2025-02-02] MEDS: COLACE 100 MG PO (21:42)
[2025-02-02] MEDS: SENOKOT 17.2 MG PO (21:42)
[2025-02-02] MEDS: AMBIEN 5 MG PO (21:55)
[2025-02-02 23:29] VITALS: BP 136/68
[2025-02-03] VITALS (11 sets, daily range): BP systolic 95–162; BP diastolic 51–84
[2025-02-03] MEDS: TYLENOL PO (01:03)
--- NOTE | 2025-02-03 03:35 | PTCARENOTE ---
Received pt from the ED; AAOx3, offers no complaints, states she is pain free when not moving or trying to bear weight. LLE shortened but not rotated, no bruise present to hip. Neurovascularly intact, trace edema present. NSR on the monitor, sinus
bradycardia when asleep. Remainder of assessment as documented. Pt updated on POC for the evening, politely declines Tylenol for pain management, oriented to room, call costa within reach. Pt states she last took Warfarin dose 02/01 ~1800.
[2025-02-03] MEDS: TYLENOL 650 MG PO ×6 (04:13→23:18)
[2025-02-03 06:47] LABS: INR 3.99; PT 38.5 Sec (11.4-14.6)
[2025-02-03 06:50] LABS: Hematocrit 33.3 % (37.0-47.0); Hemoglobin 11.0 g/dL (12.0-16.0); Mean Corp Hgb Conc. 33.0 g/dL (33.0-37.0); Mean Corpuscular Volume 94.6 fL (81.0-99.0); Platelet Count 247 10^3/uL (130-400); Red Cell Dist. Width 13.1 % (11.5-14.5)
--- NOTE | 2025-02-03 07:58 | CON.ORTHO ---
Consultation
-
Date/Time Consultation Requested: 02/02/2025
Date/Time Consultation Performed: 02/03/2025
Requesting Provider: SLAVA Kapoor
Performing Provider: Kim Crump PA-C, for Dr. Brown
Reason for Consultation: Left nondisplaced femoral neck fracture
Consultation - Orthopedics
History
HPI: This is an 84 year old female who presented to ED after obtaining an outpatient MRI that demonstrated a non displaced femoral neck fracture. She reports she sustained a fall in her kitchen about a week and a half ago after her right knee
gave out on her. She did land on her left hip, but states that her kitchen is carpeted. She was able to ambulate initially and was seen in our outpatient office on 01/26/25 where x-rays were negative for acute fracture. She continued to experience
worsening pain, getting to the point she could barely ambulate with her walker. She was able to get the MRI, which confirmed a fracture and was admitted to the hospitalists service. She lives alone at home and has ambulation dysfunction at
baseline. She does have a h/o atrial fibrillation and is currently on coumadin, the last dose being yesterday. She denies any prior issues with her left hip. She denies any radiation of pain or n/t of the LLE.
Past medical history: A-fib, Chronic HFpEF, HLD, Budd-Chiari syndrome, PMR, Fibromyalgia, chronic pain.
Past surgical history: None reported.
Social history: Denies tobacco or alcohol use. Lives alone at home, but has a son who lives in [place].
Family history: non contributory.
Review of systems: All systems reviewed and negative except for those mentioned in HPI.
Allergies / Home Medications
Allergy/AdvReac Type Severity Reaction Status Date / Time
Iodinated Contrast Media Allergy Intermediate Hives Verified 02/02/25 14:04
Penicillins Allergy Unknown Hives Verified 02/02/25 14:04
�Medication �Instructions �Recorded
prednisone 5 mg tablet 2.5 mg PO DAILYPRN PRN inflammation 05/23/21
eculizumab 300 mg/30 mL 300 mg IV Q2W 02/02/25
intravenous solution (Soliris)
ezetimibe 10 mg tablet (Zetia) 10 mg PO DAILY 02/02/25
furosemide 40 mg tablet (Lasix) 40 mg PO DAILY 02/02/25
hydroxychloroquine 200 mg tablet 200 mg PO DAILY 02/02/25
(Plaquenil)
metoprolol tartrate 25 mg tablet 75 mg PO BID 02/02/25
tramadol 50 mg tablet 50 mg PO TIDPRN PRN moderate pains 02/02/25
warfarin 2 mg tablet 2 mg PO SUWE@189902/02/25
warfarin 4 mg tablet 4 mg PO MOTUTHFRSA@189902/02/25
zolpidem 10 mg tablet 5 mg PO HSPRN PRN sleep 02/02/25
Vital Signs / Lab Results
Temp Pulse Resp BP Pulse Ox
98.2 F 61 18 162/73 98
02/03/25 03:30 02/03/25 03:30 02/03/25 03:30 02/03/25 03:30 02/03/25 04:26
02/03/25 06:03
02/02/25 16:59
INR 3.99
Physical examination:
General: Well-developed, well-nourished female in no acute distress at rest.
HEENT: Atraumatic, normocephalic. Neck supple.
Lungs: Nonlabored breathing on room air, no audible wheezing.
Left hip: Mild soft tissue swelling with healing ecchymosis. Range of motion of hip not tested due to known fracture. Calf soft and nontender to palpation. Neurovascular intact distally.
Radiographic studies:
MRI of the left hip from [facility] on 02/02/2025 shows evidence of an acute nondisplaced fracture of the subcapital left femoral neck with bone marrow edema and surrounding soft tissue edema.
Outpatient x-rays from 01/26/2025 were negative for acute fracture.
Assessment / Plan
Assessment: Left nondisplaced femoral neck fracture.
Plan: Unfortunately, Ms. Pedraza sustained a nondisplaced femoral neck fracture during her fall a week and a half ago with the nondisplaced nature of the fracture, we discussed treatment recommendations to include close reduction percutaneous pinning,
hemiarthroplasty, versus total hip arthroplasty. With her medical comorbidities, current INR of 3.99, and nondisplaced nature of the fracture, we recommend proceeding with a left hip CRPP. The surgery was explained in detail along with the
associated risk, benefits, and recovery process. Surgical and blood consents were signed and placed in the chart. Left hip was marked as the correct surgical site. IV antibiotics are on-call to the OR. She has been n.p.o. since midnight and the
plan will be to proceed with surgery under the direction of Dr. Brown later this morning. All questions were answered and patient was in agreement with treatment recommendations.
[2025-02-03] MEDS: SUBLIMAZE 50 MCG IV (09:37)
[2025-02-03] MEDS: SUBLIMAZE 25 MCG IV (09:54)
--- NOTE | 2025-02-03 11:00 | SUR.OPER ---
REcd pt post op est 11:00 via own bed drowsy , but Awake and oriented. Pt states'I made it.' She states 'I ordered lunch.' No c/o pain at present but burning does come and go. Vs are on the lower end 95/63. Enc pt to eat and drink. at
bedside. Dressing to left thigh hip area is clean, no drainage noted. Ice pack has been previously placed for comfort. Left foot warm and good pedal pulse present. Pt asked to use the bedpan. Gingerale given to pt for comfort. Pt spirts are
good. Will cont to monitor.
[2025-02-03] MEDS: LOPRESSOR PO (11:23)
[2025-02-03] MEDS: LASIX PO (11:24)
[2025-02-03] MEDS: COLACE PO ×2 (11:24→19:49)
[2025-02-03] MEDS: SENOKOT PO ×2 (11:24→19:49)
[2025-02-03] MEDS: DILAUDID 0.5 MG IV ×2 (12:29→17:05)
--- NOTE | 2025-02-03 13:40 | CM ---
OR this am, L femoral neck fx. Initial assessment completed with patient who lives alone in a 2 story home with B/B on 2nd and 1/2 bath on 1st, no steps to enter. 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 Unable to climb stairs and
remained on 1st floor and slept on couch. Prior to the fall she was independent in ADL's and ambulation. Did use a stair cane. No other DME. Does not drive. No in-home services. No service. Does have HC-POA. PCP is Dr. David Garland and
Pharmacy is [facility] on [address] in [place]. Discharge POC: TBD. Awaiting therapy evaluation and recommendation.
[2025-02-03] MEDS: PLAQUENIL 200 MG PO (13:48)
[2025-02-03] MEDS: ZETIA 10 MG PO (14:03)
--- NOTE | 2025-02-03 16:00 | W.PN.HOSP.TC ---
Today's Communication/Plan
-
Assessment / Plan
Assessment / Plan
General: No Apparent Distress, Comfortable and Conversant
HEENT: NormoCephalic, Moist mucous membranes, Atraumatic
Respiratory: Clear and Non Labored Respirations
Cardiac: S1/S2 and Regular Rhythm; No Rub or Gallop
GI: Soft, Non Tender, Non Distended and Normal Bowel Sounds
Musculoskeletal: No Edema, left hip TTP
Skin: Warm and dry
: NO Boucher
Neuro: Awake, Alert, Nonfocal/grossly intact
Psych: Calm and Intact Judgment/Insight
Ms. Pedraza is an 84-year-old female with a medical history of paroxysmal nocturnal hemoglobinuria, Budd-Chiari syndrome, A-fib (on warfarin) polymyalgia rheumatica, and cardiomyopathy (LVEF 56% on echo 06/05/2024) who presented with left hip pain
after a fall at home 10 days prior to arrival. She was initially able to ambulate with assistance of her walker. She was seen by orthopedics as an outpatient and x-rays showed no evidence of acute fracture. However her pain worsened and
ambulation became more difficult, at which point she underwent MRI which identified a left femoral neck fracture. She was admitted for surgical management.
Left femoral neck fracture:
- Status post surgical intervention the morning of 02/03, tolerated procedure well
- To be evaluated by PT/OT
- Pain control as tolerated
HFpEF:
- Currently compensated
- Continue beta-blockade with metoprolol tartrate 75 mg p.o. twice daily
- Continue home Lasix 40 mg p.o. daily
A-fib:
- Continue beta-blockade with metoprolol tartrate
- Restart anticoagulation with warfarin postoperatively, monitor INR to maintain goal between 2 and 3, INR was 3.9 on initial labs
Paroxysmal nocturnal hemoglobinuria
- Follows with curtain stretcher at [place]
- On Soliris 300 mg IV every 2 weeks as outpatient
Chronic pain syndrome:
- Due to polymyalgia rheumatica and fibromyalgia
- Continue scheduled hydroxychloroquine 20 mg p.o. daily, prednisone 2.5 mg daily as needed, and tramadol as needed
DVT prophylaxis: Warfarin
CODE STATUS: Full code
Total time spent on today's encounter was 45 minutes
Anticipated Discharge: 24 - 48 hours
Subjective/Interval History
-
Date of Service: February 03, 2025
Patient was seen and examined at bedside this morning. She had just returned from the OR with orthopedics for left hip CRPP. She tolerated the procedure well.
Objective Data
-
Labs:
Laboratory Results
02/03/25
06:03
WBC 9.0
Hgb 11.0 L
Hct 33.3 L
Plt Count 247
PT 38.5 H
INR 3.99
Vital Signs:
Vital Signs
Temp Pulse Resp BP Pulse Ox
98.6 F 72 16 118/51 97
02/03/25 12:00 02/03/25 12:00 02/03/25 12:00 02/03/25 12:00 02/03/25 12:00
I&O
02/02/25 02/03/25 02/04/25
06:59 06:59 06:59
Intake Total 240 / 240 100 / 100
Balance 240 / 240 100 / 100
Review of Systems
-
History Source: Patient
All other systems: Reviewed and negative
Musculoskeletal: Reports Joint Pain (Left hip pain)
Physical Exam
-
General: No Apparent Distress
[2025-02-03] MEDS: FLUSH (NSS) 2 FLUSH IV ×2 (16:56→17:06)
[2025-02-03] MEDS: ANCEF 5 IV ×2 (16:56→23:19)
[2025-02-03] MEDS: LOPRESSOR 75 MG PO (19:50)
[2025-02-03] MEDS: AMBIEN 5 MG PO (23:18)
[2025-02-04] VITALS (8 sets, daily range): BP systolic 83–152; BP diastolic 45–65; PULSE 69; O2SAT 98; BMI 27.7
[2025-02-04] MEDS: TYLENOL PO ×2 (04:51→23:53)
[2025-02-04 06:23] LABS: INR 4.12; PT 39.4 Sec (11.4-14.6)
[2025-02-04 06:28] LABS: Hematocrit 28.2 % (37.0-47.0); Hemoglobin 9.5 g/dL (12.0-16.0); Mean Corp Hgb Conc. 33.7 g/dL (33.0-37.0); Mean Corpuscular Volume 94.0 fL (81.0-99.0); Nucleated Red Blood Cells % 0 %; Platelet Count 261 10^3/uL (130-400); Red Cell Dist. Width 13.1 % (11.5-14.5)
[2025-02-04 06:44] LABS: Blood Urea Nitrogen 19 mg/dl (7-17); Calcium 8.7 mg/dl (8.4-10.2); Carbon Dioxide 27 mmol/L (22-30); Chloride 109 mmol/L (98-107); Estimated Creatinine Clearance 46 ml/min; Glucose 120 mg/dl (70-99); Potassium 4.5 mmol/L (3.5-5.1); Sodium 138 mmol/L (135-145); eGFR > 60.00
[2025-02-04] MEDS: LASIX 40 MG PO (07:55)
[2025-02-04] MEDS: TYLENOL 650 MG PO ×4 (07:55→20:41)
[2025-02-04] MEDS: PLAQUENIL 200 MG PO (07:55)
[2025-02-04] MEDS: ZETIA 10 MG PO (07:55)
[2025-02-04] MEDS: DILAUDID 0.5 MG IV ×2 (08:02→20:41)
[2025-02-04] MEDS: SENOKOT PO (08:03)
[2025-02-04] MEDS: COLACE PO (08:03)
[2025-02-04] MEDS: FLUSH (NSS) 2 FLUSH IV (08:04)
[2025-02-04] MEDS: LOPRESSOR PO (08:16)
--- NOTE | 2025-02-04 11:58 | W.PN.ORTHO ---
Today's Communication / Plan
-
POD #1 s/p left hip CRPP non displaced femoral neck fracture.
-PT/OT with WBAT with walker.
-Coumadin still on hold as INR was 4.12 this morning.
-Hgb 9.5 - continue to monitor.
-Appreciate case management efforts in d/c planning.
-Dressing to remain in place x 1 week. Diane out at 2 weeks.
-F/u in office in 4 weeks for repeat x-rays.
-Will continue to follow while inpatient.
Assessment
.
Distal Motor Intact: Yes
Dressing:
Clean, dry and intact.
Assessment:
POD #1 s/p left hip CRPP non displaced femoral neck fracture.
-PT/OT with WBAT with walker.
-Coumadin still on hold as INR was 4.12 this morning.
-Hgb 9.5 - continue to monitor.
-Appreciate case management efforts in d/c planning.
-Dressing to remain in place x 1 week. Diane out at 2 weeks.
-F/u in office in 4 weeks for repeat x-rays.
-Will continue to follow while inpatient.
Plan
.
Surgery / Date: 02/03/2025 left hip CRPP - Dr. Brown
DVT Prophylaxis: Coumadin
Activity:
Out of bed.
PT/OT
Subjective
.
.:
Patient resting comfortably. She reports more pain this morning and describes it as a throbbing. Has noticed more swelling overnight.
Vital Signs and Labs
.
Vital Signs and Labs:
Lab Results
02/04/25 05:47
02/04/25 05:47
Temp Pulse Resp BP Pulse Ox
98.2 F 62 18 118/49 96
02/04/25 08:10 02/04/25 08:10 02/04/25 08:10 02/04/25 08:10 02/04/25 08:10
PT 39.4 Sec (11.4-14.6) H 02/04/25 05:47
INR 4.12 02/04/25 05:47
Physical Exam
-
Right hip: Moderate diffuse swelling of hip and thigh with early ecchymosis. Dressing with very mild sangunious drainage, contained within dressing. Logroll with minimal discomfort. ROM not stressed. Calf soft and non tender to palpation. N/v
intact distally.
[2025-02-04] MEDS: ROXICODONE 5 MG PO (12:30)
--- NOTE | 2025-02-04 15:03 | W.PN.HOSP.TC ---
Today's Communication/Plan
-
Assessment / Plan
Assessment / Plan
General: No Apparent Distress, Comfortable and Conversant
HEENT: NormoCephalic, Moist mucous membranes, Atraumatic
Respiratory: Clear and Non Labored Respirations
Cardiac: S1/S2 and Regular Rhythm; No Rub or Gallop
GI: Soft, Non Tender, Non Distended and Normal Bowel Sounds
Musculoskeletal: No Edema, left hip surgical dressing with mild strikethrough
Skin: Warm and dry
: NO Boucher
Neuro: Awake, Alert, Nonfocal/grossly intact
Psych: Calm and Intact Judgment/Insight
Ms. Pedraza is an 84-year-old female with a medical history of paroxysmal nocturnal hemoglobinuria, Budd-Chiari syndrome, A-fib (on warfarin) polymyalgia rheumatica, and cardiomyopathy (LVEF 56% on echo 06/05/2024) who presented with left hip pain
after a fall at home 10 days prior to arrival. She was initially able to ambulate with assistance of her walker. She was seen by orthopedics as an outpatient and x-rays showed no evidence of acute fracture. However her pain worsened and
ambulation became more difficult, at which point she underwent MRI which identified a left femoral neck fracture. She was admitted for surgical management.
Left femoral neck fracture:
- Status post surgical intervention the morning of 02/03, tolerated procedure well
- Case management assisting with dispo pending PT/OT evaluation and recommendations
- Pain control as tolerated
Normocytic anemia:
- Hemoglobin 9.5 down from around 12 at time of admission
- Likely related to expected intraoperative blood loss and dilutional effect of IV fluids
- Will monitor, transfuse as needed
HFpEF:
- Currently compensated
- Continue beta-blockade with metoprolol tartrate 75 mg p.o. twice daily
- Continue home Lasix 40 mg p.o. daily
A-fib:
- Continue beta-blockade with metoprolol tartrate
- Restart anticoagulation with warfarin postoperatively, monitor INR to maintain goal between 2 and 3, INR 4.1 today so dose was held
Paroxysmal nocturnal hemoglobinuria
- Follows with hydraulics engineer at [place]
- On Soliris 300 mg IV every 2 weeks as outpatient
Chronic pain syndrome:
- Due to polymyalgia rheumatica and fibromyalgia
- Continue scheduled hydroxychloroquine 20 mg p.o. daily, prednisone 2.5 mg daily as needed, and tramadol as needed
DVT prophylaxis: Warfarin, holding dose today considering INR of 4.1
CODE STATUS: Full code
Total time spent on today's encounter was 40 minutes
Anticipated Discharge: 24 - 48 hours
Subjective/Interval History
-
Date of Service: February 04, 2025
Patient was seen and examined at bedside this morning. Complains of pain and swelling around her surgical site.
Objective Data
-
Labs:
Laboratory Results
02/04/25
05:47
WBC 14.4 H
Hgb 9.5 L
Hct 28.2 L
Plt Count 261
PT 39.4 H
INR 4.12
Sodium 138
Potassium 4.5
Chloride 109 H
Carbon Dioxide 27
BUN 19 H
Creatinine 0.8
Glucose 120 H
Calcium 8.7
Vital Signs:
Vital Signs
Temp Pulse Resp BP Pulse Ox
97.9 F 66 18 83/45 95
02/04/25 12:20 02/04/25 12:20 02/04/25 12:20 02/04/25 12:20 02/04/25 12:20
I&O
02/03/25 02/04/25 02/05/25
06:59 06:59 06:59
Intake Total 240 / 240 580 / 580
Balance 240 / 240 580 / 580
Review of Systems
-
History Source: Patient
All other systems: Reviewed and negative
Musculoskeletal: Reports Joint Pain (Left hip pain and swelling)
Physical Exam
-
General: No Apparent Distress
[2025-02-04] MEDS: COLACE 100 MG PO (20:41)
[2025-02-04] MEDS: SENOKOT 17.2 MG PO (20:41)
[2025-02-04] MEDS: LOPRESSOR 75 MG PO (22:45)
[2025-02-04] MEDS: AMBIEN 5 MG PO (22:58)
[2025-02-05 03:37] VITALS: BP 109/52
[2025-02-05] MEDS: TYLENOL PO ×2 (05:18→13:05)
[2025-02-05 06:33] LABS: INR 2.31; PT 25.4 Sec (11.4-14.6)
[2025-02-05 06:35] LABS: Hematocrit 27.1 % (37.0-47.0); Hemoglobin 9.1 g/dL (12.0-16.0); Mean Corp Hgb Conc. 33.6 g/dL (33.0-37.0); Mean Corpuscular Volume 94.4 fL (81.0-99.0); Nucleated Red Blood Cells % 0 %; Platelet Count 236 10^3/uL (130-400); Red Cell Dist. Width 13.2 % (11.5-14.5)
[2025-02-05 07:08] VITALS: BP 108/74
--- NOTE | 2025-02-05 08:20 | W.PN.HOSP.TC ---
Addendum entered and electronically signed by Gerardo Pinto MD 02/05/25 16:03:
Total time spent on d/c = 31 min. This included today's physical exam, progress note, review of laboratory and diagnostic data, preparation of discharge documents and prescriptions, and discussions about the pt's hospital course and discharge plan
with the patient and other medical physics researcher involved in the patient's care.
Original Note:
Today's Communication/Plan
-
see plan
Assessment / Plan
Assessment / Plan
84-year-old female with a medical history of paroxysmal nocturnal hemoglobinuria, Budd-Chiari syndrome, A-fib (on warfarin) polymyalgia rheumatica, and cardiomyopathy (LVEF 56% on echo 06/05/2024) who presented with left hip pain after a fall at
home 10 days prior to arrival. She was initially able to ambulate with assistance of her walker. She was seen by orthopedics as an outpatient and x-rays showed no evidence of acute fracture. However her pain worsened and ambulation became more
difficult, at which point she underwent MRI which identified a left femoral neck fracture. She was admitted for surgical management.
Gen: NAD, AAOx3.
Eyes: EOMI, PERRLA, no scleral icterus.
Neck: supple.
CV: RRR, +S1/S2, 1/6 systolic murmur
Resp: CTAB, no rales, wheezes, or rhonchi.
Abd: +BS, soft, NT, ND
Skin: No rashes.
Neuro: CN 2-12 intact, non-focal.
Psych: Normal mood and affect.
MRI L-hip: Acute, nondisplaced fracture of the subcapital left femoral neck.
Acute left femoral neck fracture:
-s/p open reduction with percutaneous screw fixation , tolerated procedure well
-suspect that etiology of fracture is fall trauma in the setting of likely underlying osteoporosis
-PT/OT
-pain control
Normocytic anemia:
-Hb 9.1 down from around 12 at time of admission
-due to acute blood loss anemia from surgery and dilutional effect of IV fluids
-trend Hb
Other problems:
Chronic HFpEF: cont BB/Lasix
Chronic A-fib: cont BB, restart coumadin
Paroxysmal nocturnal hemoglobinuria: follows with heme at [place], on Soliris 300mg IV Q2W as outpatient
Chronic pain syndrome: due to PMR and FMS: cont hydroxychloroquine/prednisone/tramadol PRN
FULL/coumadin
Medically cleared for d/c, case management aware.
Anticipated Discharge: Today
Subjective/Interval History
-
Date of Service: February 05, 2025
c/o 9/10 L hip pain. Denies CP/SOB.
Objective Data
-
Labs:
Laboratory Results
02/04/25 02/05/25
23:20 06:04
WBC 12.1 H
Hgb Cancelled 9.1 L
Hct Cancelled 27.1 L
Plt Count 236
PT 25.4 H
INR 2.31
Vital Signs:
Vital Signs
Temp Pulse Resp BP Pulse Ox
97.4 F 71 18 109/52 97
02/05/25 03:37 02/05/25 03:37 02/05/25 03:37 02/05/25 03:37 02/05/25 03:37
I&O
02/04/25 02/05/25 02/06/25
06:59 06:59 06:59
Intake Total 580 / 580 540 / 540
Balance 580 / 580 540 / 540
--- NOTE | 2025-02-05 08:47 | W.PN.ORTHO ---
Today's Communication / Plan
-
Continue treatment per the primary team, appreciate their management
Appreciate CM, likely SNF
continue WBAT, walker/assistance
Coumadin for DVT prophylaxis, per primary
Dressing to remain 7 to 10 days
Pain control
Outpatient follow-up 2-4 weeks for clinical check and xrays
Orthopedics to sign off for now, please reengage with any pertinent questions related to her hip during this admission
Assessment
.
Distal Motor Intact: Yes
Dressing:
Clean, dry and intact. Left hip dressing with mild strikethrough
Assessment:
POD#2 Left hip CRPP
Overall doing/feeling well albeit pain
Calf soft, nontender
Plan
.
Surgery / Date: 02/03/2025 left hip CRPP - Dr. Brown
DVT Prophylaxis: Coumadin (per primary- INR 2.3)
Activity:
Out of bed. WBAT on walker
PT/OT
Discharge Plan: SNF (appreciate CM)
Subjective
.
.:
Patient resting. Moderate amount of pain left hip
Vital Signs and Labs
.
Vital Signs and Labs:
Lab Results
02/05/25 06:04
02/04/25 05:47
Temp Pulse Resp BP Pulse Ox
97.4 F 71 18 109/52 97
02/05/25 03:37 02/05/25 03:37 02/05/25 03:37 02/05/25 03:37 02/05/25 03:37
PT 25.4 Sec (11.4-14.6) H 02/05/25 06:04
INR 2.31 02/05/25 06:04
[2025-02-05] MEDS: ZETIA 10 MG PO (08:58)
[2025-02-05] MEDS: TYLENOL 650 MG PO ×2 (08:58→16:18)
[2025-02-05] MEDS: COLACE 100 MG PO (08:58)
[2025-02-05] MEDS: PLAQUENIL 200 MG PO (08:58)
[2025-02-05] MEDS: LOPRESSOR 75 MG PO (08:58)
[2025-02-05] MEDS: SENOKOT 17.2 MG PO (08:58)
[2025-02-05] MEDS: DILAUDID 0.5 MG IV (08:59)
[2025-02-05] MEDS: LASIX 40 MG PO (08:59)
--- NOTE | 2025-02-05 10:07 | PTCARENOTE ---
pt aaox3. states pain in left hip pain med given as ordered. pt able to stand and walk to bedside commode with walker and one person assist.
[2025-02-05] MEDS: ROXICODONE 5 MG PO (13:08)
[2025-02-05 13:54] VITALS: BP 125/55
[2025-02-05 14:00] VITALS: BP 125/53
[2025-02-05 15:00] VITALS: BP 106/67
--- NOTE | 2025-02-05 15:33 | CM ---
Addendum entered by Caitlyn Verma RN 02/05/25 15:50:
Plan: Discharge to [facility] SN[facility] today. Patient's son will provide transportation.
Call report to: [phone]
Fax report to: [phone]
Original Note:
Reviewed the chart notes and spoke with the patient at the bedside. IMM reviewed. Referral sent to [facility] at request of patient. Per Gabriela, admissions at [facility] can accept today. Patient and attending notified. CM continues to be available to
patient/family and is monitoring medical plan for needs at discharge.
Plan: Discharge to [facility] SN[facility].
--- NOTE | 2025-02-05 15:58 | W.DCSUMMARY ---
Discharge Summary
Discharge Data
Date of Admission: 02/02/25
Date of Discharge: 02/05/25
-
Pending Results: No
Hospital Course
Primary diagnoses:
Acute left femoral neck fracture s/p open reduction with percutaneous screw fixation
Acute blood loss anemia from surgery and dilutional effect of IV fluids
Secondary diagnoses:
Chronic heart failure with preserved ejection fraction
Chronic atrial fibrillation
Paroxysmal nocturnal hemoglobinuria
Chronic pain syndrome: due to polymyalgia rheumatica and fibromyalgia syndrome
Consultants:
Orthopedics
Imaging:
MRI L-hip: Acute, nondisplaced fracture of the subcapital left femoral neck.
Hospital course: 84-year-old female presented with chief complaint of left hip pain after a fall at home as outlined in the H&P done on admission. Imaging above. The patient underwent open reduction with percutaneous screw fixation 02/03/25 and
tolerated the procedure well. She was seen by physical therapy and Occupational Therapy. She was discharged to rehab in medically stable condition.
Discharge Plan
-
Patient Disposition: [facility]/SNF
Discharge Diagnosis/Procedures: Acute left femoral neck fracture s/p open reduction with percutaneous screw fixation
Condition: Good
Diet: Low Cholesterol, 2 Gram Sodium and Restrict fluids to 48 oz
Activity: With assistance
Driving Restrictions: No driving
Blood Work: INR in 3 days, BMP and CBC in 1 week, prescriptions from PCP
Referrals:
David Garland MD [Family Provider, Family Practice] - in less than 1 week
Prescriptions:
New
docusate sodium 100 mg Capsule
100 mg PO BID Qty: 0 0RF
oxycodone 5 mg Tablet
5 mg PO Q4HPRN PRN (Reason: mod-sev pain) Qty: 6 0RF
sennosides [Dorota-halina] 8.6 mg Tablet
17.2 mg PO BID Qty: 0 0RF
Continued
prednisone 5 MG tablet
2.5 mg PO DAILYPRN PRN (Reason: inflammation)
zolpidem 10 MG tablet
5 mg PO HSPRN PRN (Reason: sleep)
furosemide [Lasix] 40 mg Tablet
40 mg PO DAILY
warfarin 4 mg Tablet
4 mg PO MOTUTHFRSA@1900
warfarin 2 mg Tablet
2 mg PO SUWE@1900
hydroxychloroquine [Plaquenil] 200 mg Tablet
200 mg PO DAILY
ezetimibe [Zetia] 10 mg Tablet
10 mg PO DAILY
metoprolol tartrate 25 mg Tablet
75 mg PO BID
Soliris 300 mg/30 mL Solution
300 mg IV Q2W
Discontinued
tramadol 50 mg Tablet
50 mg PO TIDPRN PRN (Reason: moderate pains)
Discharge Orders:
Discharge Patient (As Directed); Ordered 02/05/25
Ordered By: Gerardo Pinto
Discharge Date and Time
Print Language: WALLISIAN
== END 2025-02-05 16:40 | DRG 481 ==
LOC: 2 NORTH 19:58
PROVIDERS: Internal Medicine; Physician Assistant; Registered Nurse; ADMITTING PHYSICIAN Internal Medicine; ATTENDING PHYSICIAN Internal Medicine; CONSULT PHYSICIAN Orthopaedic Surgery Hand Surgery; EMERGENCY PHYSICIAN Emergency Medicine; FAMILY PHYSICIAN Family Medicine
PROC: 0QS704Z Reposition Left Upper Femur with Internal Fixation Device, Open Approach (ICD-10-PCS; 2025-02-03)
DX: M80.052A Age-related osteoporosis with current pathological fracture, left femur, initial encounter for fracture (principal); D62 Acute posthemorrhagic anemia; I50.32 Chronic diastolic (congestive) heart failure; I42.9 Cardiomyopathy, unspecified; I48.20 Chronic atrial fibrillation, unspecified; I11.0 Hypertensive heart disease with heart failure; D72.829 Elevated white blood cell count, unspecified; E78.5 Hyperlipidemia, unspecified; M35.3 Polymyalgia rheumatica; D63.8 Anemia in other chronic diseases classified elsewhere; G89.4 Chronic pain syndrome; R26.2 Difficulty in walking, not elsewhere classified; I35.1 Nonrheumatic aortic (valve) insufficiency; M79.7 Fibromyalgia; D59.5 Paroxysmal nocturnal hemoglobinuria [Marchiafava-Micheli]; W19.XXXA Unspecified fall, initial encounter; Y93.9 Activity, unspecified; Y92.009 Unspecified place in unspecified non-institutional (private) residence as the place of occurrence of the external cause; Z60.2 Problems related to living alone; Z79.01 Long term (current) use of anticoagulants; Z98.41 Cataract extraction status, right eye; Z98.42 Cataract extraction status, left eye; Z88.0 Allergy status to penicillin; Z91.041 Radiographic dye allergy status; Z79.52 Long term (current) use of systemic steroids
CPT/HCPCS: 73502; 73721; 76000; 80048; 85025; 85027; 85610; 93005; 97110; 97163; 97166; 97530; 97535; 99284; C1713; C1769

== ENCOUNTER → 2025-02-08 11:55 | Outpatient (REF) | payer OTHER, MEDICARE, SELFPAY ==
[2025-02-08 13:05] LABS: Hematocrit 23.3 % (37.0-47.0); Hemoglobin 7.8 g/dL (12.0-16.0); Mean Corp Hgb Conc. 33.5 g/dL (33.0-37.0); Mean Corpuscular Volume 92.5 fL (81.0-99.0); Platelet Count 178 10^3/uL (130-400); Red Cell Dist. Width 13.2 % (11.5-14.5)
[2025-02-08 13:15] LABS: ALT (SGPT) 21 U/L (0-35); AST (SGOT) 29 U/L (14-36); Albumin 3.2 g/dl (3.5-5.0); Alkaline Phosphatase 91 U/L (38-126); Blood Urea Nitrogen 22 mg/dl (7-17); Calcium 8.4 mg/dl (8.4-10.2); Carbon Dioxide 26 mmol/L (22-30); Chloride 109 mmol/L (98-107); Glucose 87 mg/dl (70-99); INR 1.87; Magnesium 2.0 mg/dl (1.6-2.3); PT 22.0 Sec (11.4-14.6); Potassium 3.9 mmol/L (3.5-5.1); Sodium 139 mmol/L (135-145); Total Protein 5.3 g/dl (6.3-8.2); eGFR > 60.00
== END ==
LOC: OLABWHC 11:55
PROVIDERS: ATTENDING PHYSICIAN Family Medicine
DX: S72.045D Nondisplaced fracture of base of neck of left femur, subsequent encounter for closed fracture with routine healing (principal); I48.0 Paroxysmal atrial fibrillation; E78.5 Hyperlipidemia, unspecified; M79.7 Fibromyalgia
CPT/HCPCS: 36415; 80053; 83735; 85027; 85610

== ENCOUNTER → 2025-02-14 09:28 | Outpatient (REF) | payer MEDICARE, SELFPAY ==
[2025-02-14 10:37] LABS: Hematocrit 24.1 % (37.0-47.0); Hemoglobin 7.7 g/dL (12.0-16.0); Mean Corp Hgb Conc. 32.0 g/dL (33.0-37.0); Mean Corpuscular Volume 97.2 fL (81.0-99.0); Platelet Count 290 10^3/uL (130-400); Red Cell Dist. Width 13.8 % (11.5-14.5)
[2025-02-14 10:46] LABS: INR 3.50; PT 35.4 Sec (11.4-14.6)
[2025-02-14 11:08] LABS: Blood Urea Nitrogen 17 mg/dl (7-17); Calcium 8.9 mg/dl (8.4-10.2); Carbon Dioxide 27 mmol/L (22-30); Chloride 107 mmol/L (98-107); Glucose 95 mg/dl (70-99); Potassium 4.2 mmol/L (3.5-5.1); Sodium 138 mmol/L (135-145); eGFR > 60.00
== END ==
LOC: OLABWHC 09:28
PROVIDERS: ATTENDING PHYSICIAN Family Medicine
DX: I48.0 Paroxysmal atrial fibrillation (principal)
CPT/HCPCS: 36415; 80048; 85027; 85610

== ENCOUNTER → 2025-02-16 09:47 | Outpatient (REF) | payer MEDICARE, SELFPAY ==
[2025-02-16 11:38] LABS: INR 2.69; PT 28.6 Sec (11.4-14.6)
== END ==
LOC: OLABWHC 09:47
PROVIDERS: ATTENDING PHYSICIAN Family Medicine
DX: I48.0 Paroxysmal atrial fibrillation (principal)
CPT/HCPCS: 36415; 85610

== ENCOUNTER → 2025-02-20 11:18 | Outpatient (REF) | payer MEDICARE, SELFPAY ==
[2025-02-20 12:04] LABS: Hematocrit 28.7 % (37.0-47.0); Hemoglobin 9.1 g/dL (12.0-16.0); Mean Corp Hgb Conc. 31.7 g/dL (33.0-37.0); Mean Corpuscular Volume 97.0 fL (81.0-99.0); Platelet Count 361 10^3/uL (130-400); Red Cell Dist. Width 13.9 % (11.5-14.5)
[2025-02-20 12:48] LABS: Blood Urea Nitrogen 16 mg/dl (7-17); Calcium 9.1 mg/dl (8.4-10.2); Carbon Dioxide 25 mmol/L (22-30); Chloride 106 mmol/L (98-107); Glucose 93 mg/dl (70-99); Potassium 4.4 mmol/L (3.5-5.1); Sodium 138 mmol/L (135-145); eGFR > 60.00
== END ==
LOC: OLABWHC 11:18
PROVIDERS: ATTENDING PHYSICIAN Family Medicine
DX: I48.0 Paroxysmal atrial fibrillation (principal); S72.045D Nondisplaced fracture of base of neck of left femur, subsequent encounter for closed fracture with routine healing
CPT/HCPCS: 36415; 80048; 85027

== ENCOUNTER → 2025-02-23 10:59 | Outpatient (REF) | payer MEDICARE, SELFPAY ==
[2025-02-23 14:05] LABS: INR 1.46; PT 18.0 Sec (11.4-14.6)
== END ==
LOC: OLABWHC 10:59
PROVIDERS: ATTENDING PHYSICIAN Family Medicine
DX: I48.0 Paroxysmal atrial fibrillation (principal)
CPT/HCPCS: 36415; 85610

== ENCOUNTER → 2025-03-05 13:28 | Outpatient (REF) | payer MEDICARE, SELFPAY ==
[2025-03-05 14:45] LABS: INR 2.04; PT 23.1 Sec (11.4-14.6)
== END ==
LOC: REG 13:28
PROVIDERS: ATTENDING PHYSICIAN Family Medicine
DX: I48.0 Paroxysmal atrial fibrillation (principal); Z79.01 Long term (current) use of anticoagulants
CPT/HCPCS: 36415; 85610

== ENCOUNTER → 2025-03-26 11:23 | Outpatient (REF) | payer MEDICARE, SELFPAY ==
[2025-03-26 13:27] LABS: INR 1.76; PT 20.7 Sec (11.4-14.6)
== END ==
LOC: REG 11:23
PROVIDERS: ATTENDING PHYSICIAN Family Medicine
DX: Z79.01 Long term (current) use of anticoagulants (principal); I48.0 Paroxysmal atrial fibrillation
CPT/HCPCS: 36415; 85610

== ENCOUNTER → 2025-04-18 12:43 | Outpatient (REF) | payer MEDICARE, SELFPAY | LOC: RCS 12:43 | PROVIDERS: ATTENDING PHYSICIAN Internal Medicine Cardiovascular Disease; FAMILY PHYSICIAN Family Medicine | DX: I50.30 Unspecified diastolic (congestive) heart failure (principal); I48.0 Paroxysmal atrial fibrillation | CPT/HCPCS: 93306 ==

== ENCOUNTER → 2025-04-26 09:27 | Outpatient (REF) | payer MEDICARE, SELFPAY ==
[2025-04-26 11:33] LABS: INR 4.19; PT 40.6 Sec (11.4-14.6)
== END ==
LOC: REG 09:27
PROVIDERS: ATTENDING PHYSICIAN Family Medicine
DX: Z79.01 Long term (current) use of anticoagulants (principal)
CPT/HCPCS: 36415; 85610

== ENCOUNTER → 2025-05-02 10:07 | Outpatient (REF) | payer MEDICARE, SELFPAY ==
[2025-05-02 12:46] LABS: INR 4.92; PT 45.8 Sec (11.4-14.6)
== END ==
LOC: REG 10:07
PROVIDERS: ATTENDING PHYSICIAN Family Medicine
DX: Z79.01 Long term (current) use of anticoagulants (principal); I48.0 Paroxysmal atrial fibrillation
CPT/HCPCS: 36415; 85610

== ENCOUNTER → 2025-05-04 09:40 | Outpatient (REF) | payer MEDICARE, SELFPAY ==
[2025-05-04 11:54] LABS: INR 3.00; PT 31.0 Sec (11.4-14.6)
== END ==
LOC: REG 09:40
PROVIDERS: ATTENDING PHYSICIAN Family Medicine
DX: Z79.01 Long term (current) use of anticoagulants (principal); I48.0 Paroxysmal atrial fibrillation
CPT/HCPCS: 36415; 85610

== ENCOUNTER → 2025-05-10 09:19 | Outpatient (REF) | payer MEDICARE, SELFPAY ==
[2025-05-10 11:23] LABS: INR 2.27; PT 25.2 Sec (11.4-14.6)
== END ==
LOC: REG 09:19
PROVIDERS: ATTENDING PHYSICIAN Family Medicine
DX: Z79.01 Long term (current) use of anticoagulants (principal); I48.0 Paroxysmal atrial fibrillation
CPT/HCPCS: 36415; 85610

== ENCOUNTER → 2025-05-29 11:28 | Outpatient (REF) | payer MEDICARE, SELFPAY ==
[2025-05-29 12:37] LABS: INR 2.27; PT 25.1 Sec (11.4-14.6)
== END ==
LOC: REG 11:28
PROVIDERS: ATTENDING PHYSICIAN Family Medicine
DX: Z79.01 Long term (current) use of anticoagulants (principal); I48.0 Paroxysmal atrial fibrillation
CPT/HCPCS: 36415; 85610